=== PATIENT | male | born 1950 ===

== ENCOUNTER 2022-02-18 17:14 | Outpatient (CLI) | payer MEDICARE, OTHER | END 2022-02-18 17:15 | disposition critical access hospital (66) | LOC: EMS 17:14 | DX: I46.9 Cardiac arrest, cause unspecified (principal) | CPT/HCPCS: A0425; A0433 ==

== ENCOUNTER 2022-02-18 17:16 | Emergency (ER) | payer MEDICARE, OTHER ==
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
== END 2022-02-18 19:50 | disposition expired ==
LOC: ED 17:16
DX: I46.9 Cardiac arrest, cause unspecified (principal)
CPT/HCPCS: 92950; 99281; 99285